=== PATIENT | female | born 2000 ===

== ENCOUNTER 2020-12-16 21:59 | Emergency (ER) | payer SELFPAY ==
[2020-12-16 22:03] VITALS: BP 120/75; PULSE 82; RESP 18; TEMP 37.1; O2SAT 97; BMI 27.4
== END 2020-12-17 00:12 | disposition left against medical advice (07) ==
PROVIDERS: Emergency Provider Emergency Medicine
DX: H92.01 Otalgia, right ear (principal)
CPT/HCPCS: 99281; 99282